=== PATIENT | female | born 2005 | race Asian ===

== ENCOUNTER 2024-05-29 12:52 | Emergency (ER) | payer MEDICAID ==
[~2024-05-29] VITALS: Ht 160 cm; Wt 45.4 kg
[2024-05-29 13:21] LABS: BASOPHILS # (AUTO) 0.1 K/uL (0.0-0.2); BASOPHILS % (AUTO) 0.5 % (0.0-2.0); EOSINOPHILS # (AUTO) 0.1 K/uL (0.0-0.7); EOSINOPHILS % (AUTO) 0.8 % (0.0-6.0); HEMATOCRIT 37 % (33-45); HEMOGLOBIN 12.3 g/dL (11.5-14.8); LYMPHOCYTES # (AUTO) 2.3 K/uL (0.8-4.8); LYMPHOCYTES % (AUTO) 17.4 % (20.0-44.0); MEAN CORPUSCULAR HEMOGLOBIN 30 PG (26.0-33.0); MEAN CORPUSCULAR HGB CONC 33 g/dl (31.0-36.0); MEAN CORPUSCULAR VOLUME 89 fL (82-100); MONOCYTES # (AUTO) 0.7 K/uL (0.1-1.30); MONOCYTES % (AUTO) 5.6 % (2.0-12.0); NEUTROPHILS % (AUTO) 75.7 % (43.0-81.0); PLATELET COUNT (AUTO) 370 K/uL (150-450); RED BLOOD CELL COUNT(AUTO) 4.15 MIL/uL (4.0-5.2); WHITE BLOOD COUNT (AUTO) 13.3 K/uL (4.3-11.0)
[2024-05-29] MEDS ORDERED: KETOROLAC TROMETHAMINE 15 MG/ML VIAL ONE ×2 (13:23→15:32)
[2024-05-29] MEDS: KETOROLAC TROMETHAMINE 15 MG/ML VIAL IV ONE ×2 (13:29→15:30)
[2024-05-29] MEDS: IV NS 0.9% 1,000 ML BAG IV ONE (13:30)
[2024-05-29 13:35] LABS: CALCIUM, SERUM 9.4 mg/dL (8.5-10.1); CREATININE 0.6 mg/dL (0.6-1.3); POTASSIUM 3.7 mmol/L (3.5-5.1)
[2024-05-29 13:42] LABS: ALBUMIN 4.7 g/dL (3.4-5.0); BILIRUBIN,DIRECT 0.2 mg/dL (0.0-0.2); BILIRUBIN,TOTAL 0.5 mg/dL (0.2-1.0); TOTAL PROTEIN, SERUM 7.1 g/dL (6.4-8.2)
[2024-05-29] MEDS ORDERED: IOHEXOL-300 100 ML VIAL IV ONE (13:56)
[2024-05-29] MEDS ORDERED: IV NS 0.9% 250 ML IV ONE (13:56)
[2024-05-29 15:48] LABS: APPEARANCE,URINE CLEAR (CLEAR); BILIRUBIN,URINE NEGATIVE (NEGATIVE); BLOOD, URINE TRACE-INTA Ery/uL (NEGATIVE); COLOR,URINE YELLOW (YELLOW); KETONES,URINE 1+ mg/dL (NEGATIVE); LEUKOCYTE ESTERASE ,URINE NEGATIVE (NEGATIVE); NITRITE, URINE NEGATIVE (NEGATIVE); PH,URINE 5.5 (5.0-8.0); PROTEIN,URINE TRACE mg/dl (NEGATIVE); UGLUCOSE NEGATIVE (NEGATIVE); UROBILINOGEN,URINE 0.2 EU/dL (0.2)
[2024-05-29] MEDS ORDERED: TAMS-12 PO (15:52)
[2024-05-29] MEDS ORDERED: IBUP-1490 PO (15:55)
[2024-05-29 15:56] LABS: ADD URINE CULTURE NO; BACTERIA,URINE Few /HPF (None Seen); SQUAMOUS EPITHELIAL CELL,UR Few /HPF (None Seen)
[2024-05-29 16:09] VITALS: BP 121/61; TEMP 98.5; O2SAT 99
== END 2024-05-29 16:09 | disposition home or self-care (01) ==
LOC: ER 12:52
DX: N13.2 Hydronephrosis with renal and ureteral calculous obstruction (principal); R30.0 Dysuria
CPT/HCPCS: 99285; 74177; 96374; 96361; 85025; 80048; 83690; 80076; 81001; 36415; 84702; 96372; J1885 ×2; J7030; J7050; Q9967